=== PATIENT | female | born 1995 | race Two or more races ===

== ENCOUNTER 2025-07-02 22:35 | Emergency (ER) | payer MEDICAID ==
[~2025-07-02] VITALS: Ht 167.6 cm; Wt 54.4 kg
[2025-07-02 23:58] LABS: PREGNANCY TEST URINE QUAL NEGATIVE (NEGATIVE)
[2025-07-03] MEDS ORDERED: GUAI1TBM19 PO (00:33)
[2025-07-03] MEDS ORDERED: AZIT500T4 PO (00:33)
[2025-07-03] MEDS ORDERED: BENZ-13 PO (00:33)
[2025-07-03 02:02] VITALS: BP 106/62; TEMP 98.3; O2SAT 98
== END 2025-07-03 02:03 | disposition home or self-care (01) ==
LOC: ER 22:38
DX: J40 Bronchitis, not specified as acute or chronic (principal); R07.9 Chest pain, unspecified; R05.9 Cough, unspecified; Z60.2 Problems related to living alone; Z20.822 Contact with and (suspected) exposure to COVID-19
CPT/HCPCS: 71045-TC; 84703-TC